=== PATIENT | male | born 2000 | race Two or more races ===

== ENCOUNTER 2020-04-22 18:30 | Emergency (ER) | payer OTHER ==
[~2020-04-22] VITALS: Ht 167.6 cm; Wt 90.7 kg
[2020-04-22] MEDS ORDERED: KETOROLAC TROMETHAMINE 30 MG INJ ONE (18:58)
[2020-04-22] MEDS ORDERED: CYCLOBENZAPRINE HCL 10 MG TABLET ONE (18:59)
[2020-04-22] MEDS ORDERED: KETOROLAC TROMETHAMINE 30 MG INJ IM ONE (19:00)
[2020-04-22] MEDS ORDERED: CYCLOBENZAPRINE HCL 10 MG TABLET PO ONE (19:00)
--- NOTE | 2020-04-22 19:01 | NUR ---
PT MEDICATED FOR PAIN PER MD ORDER. LT KNEE XRAY DONE AT BEDSIDE
[2020-04-22] MEDS ORDERED: HYDROCODONE/APAP 5-325MG TABLET ONE (19:44)
[2020-04-22] MEDS ORDERED: HYDROCODONE/APAP 5-325MG TABLET PO ONE (19:45)
--- NOTE | 2020-04-22 20:10 | NUR ---
Patient discharged to home in stable condition. Written and verbal after care instructions given. Patient verbalizes understanding of instructions. Stressed follow up or return to ER for worsening s/s. Patient out of ER by crutches. Gait training provided. NO falls noted. VS stable, no acute sign of distress. All belongings taken.
[2020-04-22 20:12] VITALS: BP 148/77
== END 2020-04-22 20:13 | disposition home or self-care (01) ==
LOC: ER 18:33
DX: M25.562 Pain in left knee (principal)
CPT/HCPCS: 29505; 73564; 96372; 99283; J1885; A4663